=== PATIENT | male | born 1990 | race Two or more races ===

== ENCOUNTER 2017-04-04 18:49 | Emergency (ER) | payer OTHER ==
[~2017-04-04] VITALS: Ht 170.2 cm; Wt 81.6 kg
== END 2017-04-04 23:12 | disposition home or self-care (01) ==
LOC: ER 18:49
DX: J11.1 Influenza due to unidentified influenza virus with other respiratory manifestations (principal)

== ENCOUNTER → 2017-11-26 | Emergency (ER) | payer OTHER | END | disposition left against medical advice (07) | LOC: ER 20:06 | DX: Z53.20 Procedure and treatment not carried out because of patient's decision for unspecified reasons (principal) ==

== ENCOUNTER 2019-02-18 11:27 | Emergency (ER) | payer OTHER ==
[~2019-02-18] VITALS: Ht 172.7 cm; Wt 88.5 kg
== END 2019-02-18 16:02 | disposition home or self-care (01) ==
LOC: ER 11:27
DX: J11.1 Influenza due to unidentified influenza virus with other respiratory manifestations (principal); B34.9 Viral infection, unspecified